=== PATIENT | male | born 1990 | race Caucasian/White ===

== ENCOUNTER 2019-07-05 10:32 | Emergency (ER) | payer SELFPAY ==
[~2019-07-05] VITALS: Ht 180.3 cm; Wt 86.4 kg
[2019-07-05 10:58] VITALS: Ht 180.3 cm; Wt 86.4 kg
[2019-07-05] MEDS ORDERED: BACLOFEN20 M1 PO (11:46)
[2019-07-05] MEDS ORDERED: VOLTAREN75 MG PO (11:46)
[2019-07-05 12:34] VITALS: BP 109/69
== END 2019-07-05 12:36 | disposition home or self-care (01) ==
LOC: D.ER 10:32
DX: M25.511 Pain in right shoulder (principal); M77.9 Enthesopathy, unspecified

== ENCOUNTER 2019-10-19 19:06 | Emergency (ER) | payer SELFPAY ==
[~2019-10-19] VITALS: Ht 180.3 cm; Wt 84.8 kg
[~2019-10-19 19:06] MED LIST: BACLOFEN20 M1 PO; VOLTAREN75 MG PO
[2019-10-19 19:28] VITALS: Ht 180.3 cm; Wt 84.8 kg
[2019-10-19 20:38] VITALS: BP 132/88
== END 2019-10-19 20:39 | disposition home or self-care (01) ==
LOC: D.ER 19:06
DX: J02.0 Streptococcal pharyngitis (principal); Z72.0 Tobacco use

== ENCOUNTER 2020-02-14 11:35 | Emergency (ER) | payer SELFPAY ==
[~2020-02-14] VITALS: Ht 180.3 cm; Wt 79.5 kg
[2020-02-14 11:41] VITALS: BP 109/73; Ht 180.3 cm; Wt 79.5 kg
== END 2020-02-14 13:00 | disposition home or self-care (01) ==
LOC: D.ER 11:35
DX: J02.0 Streptococcal pharyngitis (principal); J02.9 Acute pharyngitis, unspecified

== ENCOUNTER 2020-03-24 23:14 | Emergency (ER) | payer SELFPAY ==
[~2020-03-24] VITALS: Ht 180.3 cm; Wt 79.5 kg
[2020-03-24 23:18] VITALS: Ht 180.3 cm; Wt 79.5 kg
[2020-03-24 23:56] LABS: HEMATOCRIT 43.6 % (42.0-54.0); HEMOGLOBIN 14.9 g/dL (13.5-17.5); MCHC 34.2 g/dL (31.0-37.0); MCV 87.9 fL (80.0-100.0); MEAN PLATELET VOLUME 8.1 fL (7.4-10.4); NEUTROPHILS 65.6 % (40-80); PLATELET COUNT 262 10x3/uL (130-400); RBC 4.96 10x6/uL (4.20-6.10); RDW 13.2 % (11.5-14.5); WBC 10.3 10x3/uL (4.8-10.8)
[2020-03-25 00:20] LABS: CALC OSMOLALITY 279 mosm/kg (275-300); CALCIUM 8.6 mg/dL (8.5-10.1); CARBON DIOXIDE 31.5 mmol/L (21.0-32.0); CHLORIDE - SERUM 101 mmol/L (98-107); CREATININE - SERUM 1.1 mg/dL (0.6-1.3); GLUCOSE 137 mg/dL (74-106); POTASSIUM - SERUM 3.7 mmol/L (3.5-5.1); SODIUM 139 mmol/L (136-145); UREA NITROGEN 13 mg/dL (7-18); eGFR NON AFRICAN AMERICAN 83 mL/min (90-120)
[2020-03-25 00:23] LABS: ALBUMIN 3.4 g/dL (3.4-5.0); ALKALINE PHOSPHATASE 79 U/L (30-120); ALT (SGPT) 23 U/L (10-68); BILIRUBIN - TOTAL 0.34 mg/dL (0.2-1.3); C-REACTIVE PROTEIN 6.1 mg/dL (0.0-0.9); PROTEIN - SERUM 7.3 g/dL (6.4-8.2)
[2020-03-25] MEDS ORDERED: NAPROSYN500 MG PO (00:37)
[2020-03-25] MEDS ORDERED: BACTRIM DS TAB1 EAC1 PO (00:37)
[2020-03-25 00:49] VITALS: BP 128/81
== END 2020-03-25 00:52 | disposition home or self-care (01) ==
LOC: D.ER 23:14
PROVIDERS: Family Medicine
DX: F19.10 Other psychoactive substance abuse, uncomplicated (principal); L03.113 Cellulitis of right upper limb

== ENCOUNTER 2020-08-13 18:12 | Emergency (ER) | payer SELFPAY ==
[~2020-08-13] VITALS: Ht 180.3 cm; Wt 75.0 kg
[~2020-08-13 18:12] MED LIST changes: +BACTRIM DS TAB1 EAC1 PO; +NAPROSYN500 MG PO
[2020-08-13 18:19] VITALS: BP 135/82; Ht 180.3 cm; Wt 75.0 kg
[2020-08-13] MEDS ORDERED: CLEOCIN HCL150 MG PO (18:21)
== END 2020-08-13 20:05 | disposition left against medical advice (07) ==
LOC: D.ER 18:12
DX: L08.9 Local infection of the skin and subcutaneous tissue, unspecified (principal)

== ENCOUNTER 2020-08-15 01:45 | Inpatient (IN) | payer MEDICAID ==
[~2020-08-15] VITALS: Ht 180.3 cm; Wt 74.5 kg
[~2020-08-15 01:45] MED LIST changes: +CLEOCIN HCL150 MG PO
[2020-08-15 02:57] VITALS: BP 108/74
--- NOTE | 2020-08-15 03:13 | NUR ---
WHEN STARTING VANC, PT ARM STARTED BREAKING OUT IN HIVES, TURNED VANC OFF AND GAVE BENADRYL PER DOC ORDER
[2020-08-15 03:22] LABS: BASOPHILS 0.1 % (0-2); EOSINOPHILS 7.6 % (0-7); HEMATOCRIT 39.3 % (42.0-54.0); HEMOGLOBIN 13.6 g/dL (13.5-17.5); IMMATURE GRANULOCYTES 0.1 % (0-5); LYMPHOCYTE ABS# 1.99 10x3/uL (1.32-3.57); LYMPHOCYTES 24.9 % (15-50); MCH 29.4 pg (26.0-34.0); MCHC 34.6 g/dL (31.0-37.0); MCV 85.1 fL (80.0-100.0); MEAN PLATELET VOLUME 9.4 fL (7.4-10.4); MONOCYTES 10.3 % (2-11); NEUTROPHIL ABS# 4.56 10x3/uL (1.78-5.38); PLATELET COUNT 267 10x3/uL (130-400); RBC 4.62 10x6/uL (4.20-6.10); RDW 12.6 % (11.5-14.5)
[2020-08-15 03:29] LABS: CALC OSMOLALITY 276 mosm/kg (275-300); CALCIUM 8.7 mg/dL (8.5-10.1); CARBON DIOXIDE 29.8 mmol/L (21.0-32.0); CHLORIDE - SERUM 102 mmol/L (98-107); CREATININE - SERUM 1.1 mg/dL (0.6-1.3); GLUCOSE 131 mg/dL (74-106); POTASSIUM - SERUM 3.5 mmol/L (3.5-5.1); SODIUM 137 mmol/L (136-145); UREA NITROGEN 14 mg/dL (7-18); eGFR NON AFRICAN AMERICAN 83 mL/min (90-120)
[2020-08-15 03:35] LABS: ALBUMIN 3.6 g/dL (3.4-5.0); ALKALINE PHOSPHATASE 87 U/L (30-120); ALT (SGPT) 31 U/L (10-68); PROTEIN - SERUM 7.1 g/dL (6.4-8.2)
[2020-08-15 03:47] LABS: BILIRUBIN - TOTAL 0.23 mg/dL (0.2-1.3)
[2020-08-15 04:42] VITALS: BP 138/69; BMI 22.9
[2020-08-15 08:12] VITALS: BP 108/65
[2020-08-15 09:35] VITALS: Ht 180.3 cm; Wt 74.5 kg
[2020-08-15 12:24] VITALS: BP 108/60
[2020-08-15 17:04] VITALS: BP 117/65
[2020-08-15 20:18] VITALS: BP 106/50
--- NOTE | 2020-08-15 23:20 | NUR ---
REC'D CHGE OF SHIFT WALKING ROUNDS IN BED EYES CLOSED RESP DEEP ND EVEN.RIGHT ARM VISIBLE LESS RED AND SWOLLEN UP ON PILLOW WILL CONTINUE TO MONITOR FOR ANY CHGES AND FOLLOW CURRENT PLAN OF CRE.
[2020-08-16 00:29] VITALS: BP 110/54
[2020-08-16 04:00] VITALS: BP 108/50
[2020-08-16] MEDS ORDERED: CLEOCIN HCL150 MG PO (08:06)
[2020-08-16] MEDS ORDERED: ARISTOCORT 0.5%15 GM TOPICAL (08:08)
[2020-08-16] MEDS ORDERED: SILVADENE20 GM TP (08:09)
[2020-08-16] MEDS ORDERED: PREDNISONE20 MG PO (08:10)
[2020-08-16 08:31] VITALS: BP 110/54
--- NOTE | 2020-08-16 10:08 | MORECARE ---
CASE MANAGEMENT DISCHARGE SUMMARY PATIENT: HERIBERTO FIGUEROA UNIT: [id number] ADM DATE: 08/15/20 AGE: 29 : 88 SEX: M ROOM/BED: D.2205 AUTHOR: KENDRICK DAO PHYSICIAN: REFERRING PHYSICIAN: JUDAH ORTEGA MD DATE OF SERVICE: 08/16/20 Discharge Plan Patient Name: HERIBERTO FIGUEROA Facility: [facility]:[place] : 1990 Planned Disposition: Home or Self Care Anticipated Discharge Date: Discharge Date: Expected LOS: Initial Reviewer: [email or web address] Initial Review Date: 08/15/2020 Generated: 08/16/20 11:07 am Patient Name: HERIBERTO FIGUEROA Page 16521 at 1008 All edits/amendments must be made on the electronic document DICTATION DATE: 08/16/20 1007 CD MIXER: DM 08/16/20 [facility] RPT#: [id number] DC DATE: STATUS: ADM IN [facility] [address] [place] [address] END OF REPORT
--- NOTE | 2020-08-16 10:22 | MORECARE ---
CASE MANAGEMENT DISCHARGE SUMMARY PATIENT: HERIBERTO FIGUEROA UNIT: [id number] ADM DATE: 08/15/20 AGE: 29 : [birth year] SEX: M ROOM/BED: D.2205 AUTHOR: KENDRICK DAO PHYSICIAN: REFERRING PHYSICIAN: JUDAH ORTEGA MD DATE OF SERVICE: 08/16/20 Discharge Plan Patient Name: HERIBERTO FIGUEROA Facility: [facility]:[place] : 1990 Planned Disposition: Home or Self Care Anticipated Discharge Date: Discharge Date: Expected LOS: Initial Reviewer: [email or web address] Initial Review Date: 08/15/2020 Generated: 08/16/20 11:21 am Comments DCP- Discharge Planning Updated by [email or web address]: Julita Chacko on 08/16/20 9:[address] Patient Name: HERIBERTO FIGUEROA Admission Status: ER Accout number: [id number] Admission Date: 08-15-2020 : 1990 Admission Diagnosis: Attending: JUDAH ORTEGA Current LOS: 1 Anticipated DC Date: Planned Disposition: Home or Self Care Primary Insurance: MEDICAID [place] PENDING Discharge Planning Comments: CM met with patient to complete initial dc planning assessment. CM educated patient on the CM role and verbal consent given by patient to complete assessment. Patient lives at home with his parents where he states he is independent with his care. At discharge patient plans to return home and feels this is a safe discharge. CM discussed availability of home health, rehab services, and medical equipment. He said that he was trying to get ahold of someone to pick him up, but if he can't he will just walk home. He said it is not that far. I offered him a bus ticket and he didn't want it. I will still send a bus ticket home with him incase he changes his mind. He said that he already has the abx at home and he has the money to get his steroids. We will give him the left over ointment that he was using at the hospital. Patient denied known discharge needs at this time. CM will continue to follow and will assist as needed with dc plans/needs Distresser: Julita Chacko DCPIA - Discharge Planning Initial Assessment Updated by [email or web address]: Julita Chacko on 08/16/20 10:18 am * Is the patient Alert and Oriented? Yes * How many steps to enter\exit or inside your home? * PCP NONE * Pharmacy [facility] * Preadmission Environment Home with Family * ADLs Independent * Equipment None * List name and contact numbers for known caregivers / representatives who currently or will assist patient after discharge: RONEL [phone] * Verbal permission to speak to the caregivers and representatives has been obtained from the patient. N/A * Community resources currently utilized None * Additional services required to return to the preadmission environment? No * Can the patient safely return to the preadmission environment? Yes * Has this patient been hospitalized within the prior 30 days at any hospital? No Last DP export: 08/16/20 9:07 a Patient Name: HERIBERTO FIGUEROA Page 48041 at 1022 All edits/amendments must be made on the electronic document DICTATION DATE: 08/16/20 1021 VOICE NETWORK ADMINISTRATOR: JUAN MIGUEL 08/16/20 1021 RPT#: [id number] DC DATE: STATUS: ADM IN [facility] [address] [place] [address] END OF REPORT
--- NOTE | 2020-08-17 09:53 | MORECARE ---
CASE MANAGEMENT DISCHARGE SUMMARY PATIENT: HERIBERTO FIGUEROA UNIT: [id number] ADM DATE: 08/15/20 AGE: 29 : 88 SEX: M ROOM/BED: D.2205 AUTHOR: KENDRICK DAO PHYSICIAN: REFERRING PHYSICIAN: JUDAH ORTEGA MD DATE OF SERVICE: 08/17/20 Discharge Plan Patient Name: HERIBERTO FIGUEROA Facility: [facility]:[place] : 1990 Planned Disposition: Home or Self Care Anticipated Discharge Date: Discharge Date: 08/16/2020 Expected LOS: Initial Reviewer: [email or web address] Initial Review Date: 08/15/2020 Generated: 08/17/20 10:53 am Comments DCP- Discharge Planning Updated by [email or web address]: Julita Chacko on 08/16/20 9:[address] Patient Name: HERIBERTO FIGUEROA Admission Status: ER Accout number: [id number] Admission Date: 08-15-2020 : 1990 Admission Diagnosis: Attending: JUDAH ORTEGA Current LOS: 1 Anticipated DC Date: Planned Disposition: Home or Self Care Primary Insurance: MEDICAID [place] PENDING Discharge Planning Comments: CM met with patient to complete initial dc planning assessment. CM educated patient on the CM role and verbal consent given by patient to complete assessment. Patient lives at home with his parents where he states he is independent with his care. At discharge patient plans to return home and feels this is a safe discharge. CM discussed availability of home health, rehab services, and medical equipment. He said that he was trying to get ahold of someone to pick him up, but if he can't he will just walk home. He said it is not that far. I offered him a bus ticket and he didn't want it. I will still send a bus ticket home with him incase he changes his mind. He said that he already has the abx at home and he has the money to get his steroids. We will give him the left over ointment that he was using at the hospital. Patient denied known discharge needs at this time. CM will continue to follow and will assist as needed with dc plans/needs Sr. Director Product Management: Julita Chacko DCPIA - Discharge Planning Initial Assessment Updated by [email or web address]: Julita Chacko on 08/16/20 10:18 am * Is the patient Alert and Oriented? Yes * How many steps to enter\exit or inside your home? * PCP NONE * Pharmacy [facility] * Preadmission Environment Home with Family * ADLs Independent * Equipment None * List name and contact numbers for known caregivers / representatives who currently or will assist patient after discharge: RONEL [phone] * Verbal permission to speak to the caregivers and representatives has been obtained from the patient. N/A * Community resources currently utilized None * Additional services required to return to the preadmission environment? No * Can the patient safely return to the preadmission environment? Yes * Has this patient been hospitalized within the prior 30 days at any hospital? No Last DP export: 08/16/20 9:22 a Patient Name: HERIBERTO FIGUEROA Page [id number] at 0953 All edits/amendments must be made on the electronic document DICTATION DATE: 08/17/20952 MATERIAL DAMAGE ADJUSTER: JUAN MIGUEL 08/17/20952 RPT#: [id number] DC DATE:08/16/20 STATUS: DIS IN [facility] [address] [place] [address] END OF REPORT
== END 2020-08-16 11:00 | disposition home or self-care (01) | DRG 607 ==
LOC: D.ER 01:45 → D.MS 03:26
PROVIDERS: Emergency Medicine; ADMIT Family Medicine; ATTEND Family Medicine
DX: L25.5 Unspecified contact dermatitis due to plants, except food (principal); L03.113 Cellulitis of right upper limb; L01.03 Bullous impetigo; F19.10 Other psychoactive substance abuse, uncomplicated; B95.8 Unspecified staphylococcus as the cause of diseases classified elsewhere

== ENCOUNTER 2020-11-08 22:31 | Emergency (ER) | payer MEDICAID ==
[~2020-11-08] VITALS: Ht 180.3 cm; Wt 79.5 kg
[~2020-11-08 22:31] MED LIST changes: +ARISTOCORT 0.5%15 GM TOPICAL; +PREDNISONE20 MG PO; +SILVADENE20 GM TP
[2020-11-08 22:46] VITALS: Ht 180.3 cm; Wt 79.5 kg
[2020-11-08] MEDS ORDERED: DOXYCYCLINE HY100 M2 PO (23:23)
[2020-11-08 23:32] VITALS: BP 131/90
== END 2020-11-08 23:32 | disposition home or self-care (01) ==
LOC: D.ER 22:31
DX: S31.050A Open bite of lower back and pelvis without penetration into retroperitoneum, initial encounter (principal); W57.XXXA Bitten or stung by nonvenomous insect and other nonvenomous arthropods, initial encounter; Y93.9 Activity, unspecified; Y92.9 Unspecified place or not applicable; R21 Rash and other nonspecific skin eruption